=== PATIENT | male | born 1970 | race Caucasian/White ===

== ENCOUNTER 2023-10-08 07:13 | Emergency (ER) | payer OTHER ==
[~2023-10-08] VITALS: Ht 175.3 cm; Wt 94.3 kg
[2023-10-08 07:27] VITALS: PULSE 60; RESP 18; TEMP 98.1; O2SAT 96
[2023-10-08] MEDS ORDERED: ACETAMINOPHEN-1 EAC4 PO (08:17)
== END 2023-10-08 08:06 | disposition home or self-care (01) ==
LOC: FSED 07:19
DX: R10.33 Periumbilical pain (principal); K42.9 Umbilical hernia without obstruction or gangrene; F41.9 Anxiety disorder, unspecified
CPT/HCPCS: 99282